=== PATIENT | female | born 1985 | race African-American/Black ===

== ENCOUNTER 2016-11-07 23:35 | Emergency (ER) | payer OTHER ==
[~2016-11-07] VITALS: Ht 157.4 cm; Wt 62.6 kg
[~2016-11-07 23:35] MED LIST: ACCUNEB SO1.25 MG/1; ADULT TUSS100 MG/5 M PO; ALBUTEROL2.5 MG/0.5 IH; BACTRIM DS TAB1 EACH PO; CLEOCIN HCL300 MG PO; IBUPROFEN 600600 M1 PO; KEFLEX500 MG PO; NAPROSYN500 MG PO; NAPROXEN 500MG500 MG PO; NORCO 5-325 TA1 EACH PO; PREDNISONE 10 M10 MG; PROVENTIL HFA6.7 G1 INH; PULMICORT0.25 MG/2 IH; RISPERDAL 1 MG T1 MG; ZOLOFT50 MG; ZPAK PO
[2016-11-08] MEDS ORDERED: PREDNISONE50 MG PO (01:49)
[2016-11-08] MEDS ORDERED: VENTOLIN HFA 1818 GM INH (01:49)
[2016-11-08 01:59] VITALS: BP 121/77
== END 2016-11-08 01:51 ==
LOC: ER 23:35
DX: J45.901 Unspecified asthma with (acute) exacerbation (principal); F32.9 Major depressive disorder, single episode, unspecified; F17.200 Nicotine dependence, unspecified, uncomplicated; F10.99 Alcohol use, unspecified with unspecified alcohol-induced disorder; Z88.0 Allergy status to penicillin

== ENCOUNTER 2018-12-15 12:12 | Emergency (ER) | payer OTHER ==
[~2018-12-15] VITALS: Ht 154.9 cm; Wt 58.1 kg
[2018-12-15 12:12] VITALS: BP 103/71
[~2018-12-15 12:12] MED LIST changes: +PREDNISONE50 MG PO; +VENTOLIN HFA 1818 GM INH
[2018-12-15] MEDS ORDERED: ZOVIRAX400 MG PO (13:06)
== END 2018-12-15 13:10 | disposition home or self-care (01) ==
LOC: ER 12:12
DX: B00.1 Herpesviral vesicular dermatitis (principal); J45.909 Unspecified asthma, uncomplicated; F32.9 Major depressive disorder, single episode, unspecified; F17.210 Nicotine dependence, cigarettes, uncomplicated; Z88.0 Allergy status to penicillin

== ENCOUNTER 2019-11-10 00:06 | Emergency (ER) | payer OTHER ==
[~2019-11-10] VITALS: Ht 154.9 cm; Wt 62.1 kg
[~2019-11-10 00:06] MED LIST changes: +ZOVIRAX400 MG PO
[2019-11-10] MEDS ORDERED: RISPERDAL2 MG PO (00:15)
[2019-11-10] MEDS ORDERED: SERTRALINE HCL100 MG PO (00:16)
[2019-11-10] MEDS ORDERED: BIKTARVY 50-201 EACH PO (00:17)
[2019-11-10] MEDS ORDERED: VISTARIL 25 MG25 M1 PO (00:18)
[2019-11-10] MEDS ORDERED: TRAZODONE 150150 M1 PO (00:18)
[2019-11-10 03:21] VITALS: BP 123/73
[2019-11-10] MEDS ORDERED: KEFLEX500 M1 PO ×2 (08:05)
[2019-11-11] MEDS ORDERED: MINIPRESS2 MG PO (13:48)
== END 2019-11-10 03:22 | disposition home or self-care (01) ==
LOC: ER 00:06
DX: S39.012A Strain of muscle, fascia and tendon of lower back, initial encounter (principal); J45.909 Unspecified asthma, uncomplicated; F17.210 Nicotine dependence, cigarettes, uncomplicated; Z88.0 Allergy status to penicillin; Z79.899 Other long term (current) drug therapy; W17.89XA Other fall from one level to another, initial encounter; Y93.33 Activity, BASE jumping; Y92.89 Other specified places as the place of occurrence of the external cause; Y99.8 Other external cause status

== ENCOUNTER 2019-11-10 07:01 | Emergency (ER) | payer OTHER ==
[~2019-11-10] VITALS: Ht 152.4 cm; Wt 62.1 kg
[~2019-11-10 07:01] MED LIST changes: +BIKTARVY 50-201 EACH PO; +RISPERDAL2 MG PO; +SERTRALINE HCL100 MG PO; +TRAZODONE 150150 M1 PO; +VISTARIL 25 MG25 M1 PO
[2019-11-10] MEDS ORDERED: KEFLEX500 M1 PO ×2 (08:05)
[2019-11-10 09:08] VITALS: BP 106/72
[2019-11-11] MEDS ORDERED: MINIPRESS2 MG PO (13:48)
== END 2019-11-10 09:08 | disposition home or self-care (01) ==
LOC: ER 07:01
DX: S50.01XA Contusion of right elbow, initial encounter (principal); S60.221A Contusion of right hand, initial encounter; S80.812A Abrasion, left lower leg, initial encounter; S80.811A Abrasion, right lower leg, initial encounter; J45.909 Unspecified asthma, uncomplicated; F17.210 Nicotine dependence, cigarettes, uncomplicated; Z88.0 Allergy status to penicillin; Z79.899 Other long term (current) drug therapy; X58.XXXA Exposure to other specified factors, initial encounter; Y93.39 Activity, other involving climbing, rappelling and jumping off; Y92.89 Other specified places as the place of occurrence of the external cause; Y99.8 Other external cause status

== ENCOUNTER 2019-11-10 09:50 | Emergency (ER) | payer OTHER ==
[~2019-11-10] VITALS: Ht 162.6 cm; Wt 63.5 kg
[~2019-11-10 09:50] MED LIST changes: +KEFLEX500 M1 PO
[2019-11-10 11:42] LABS: URINE BILIRUBIN NEGATIVE (Negative); URINE BLOOD 3+ (Negative); URINE CLARITY CLEAR; URINE COLOR YELLOW; URINE GLUCOSE-RANDOM* NEGATIVE (Negative); URINE KETONES NEGATIVE (Negative); URINE LEUKOCYTES-REFLEX NEGATIVE (Negative); URINE NITRITE-REFLEX NEGATIVE (Negative); URINE PROTEIN (DIPSTICK) 1+ (Negative); URINE SPECIFIC GRAVITY <= 1.005 (1.005-1.035); URINE UROBILINOGEN 0.2 E.U./dl (0.2-1.0)
[2019-11-10 11:50] LABS: HEMATOCRIT 38.1 % (37.0-47.0); HEMOGLOBIN 12.8 gm/dL (12.0-15.0); MCH 32.7 pg (26.0-34.0); MCHC 33.7 g/dL (28.0-37.0); RBC 3.93 mil/uL (4.20-5.00); RDW 13.6 % (10.5-14.5); WBC 17.7 thou/uL (4.0-11.0)
[2019-11-10 11:57] LABS: CALCIUM 8.8 mg/dL (8.5-10.1); CREATININE 0.9 mg/dL (0.6-1.0); POTASSIUM 3.1 mmol/L (3.5-5.1); SALICYLATE 4.3 mg/dL (2.8-20.0)
[2019-11-10 11:59] LABS: AMP/METHAMP Negative (Negative); BARBITURATES Negative (Negative); BENZODIAZEPINES Negative (Negative); COCAINE POSITIVE (Negative); METHADONE Negative (Negative); OPIATES Negative (Negative); PCP POSITIVE (Negative)
[2019-11-10 12:03] LABS: SQUAMOUS >10 Many /LPF (0-3)
[2019-11-10 12:04] LABS: BACTERIA-REFLEX 1-9 Few /HPF (None Seen); CASTS None Seen /LPF (None Seen); CRYSTALS None Seen /LPF (None Seen); URINE WBC-REFLEX 0-5 Rare /HPF (0-5)
[2019-11-10 12:05] LABS: URINE RBC 0-2 Rare /HPF (0-2)
[2019-11-11] MEDS ORDERED: MINIPRESS2 MG PO (13:48)
[2019-11-12 23:44] VITALS: BP 116/73
== END 2019-11-13 00:07 | disposition home or self-care (01) ==
LOC: ER 09:50
PROVIDERS: Emergency Medicine
DX: F29 Unspecified psychosis not due to a substance or known physiological condition (principal); F19.90 Other psychoactive substance use, unspecified, uncomplicated; F17.210 Nicotine dependence, cigarettes, uncomplicated; J45.909 Unspecified asthma, uncomplicated; F20.9 Schizophrenia, unspecified; F31.9 Bipolar disorder, unspecified; Z79.899 Other long term (current) drug therapy; Z88.0 Allergy status to penicillin